=== PATIENT | female | born 1940 | race Caucasian/White ===

== ENCOUNTER 2019-10-19 11:28 | Emergency (ER) | payer OTHER ==
[~2019-10-19] VITALS: Ht 160 cm; Wt 73.5 kg
[2019-10-19] MEDS ORDERED: ASPIR 8181 MG PO (12:07)
[2019-10-19] MEDS ORDERED: EUTHYROX88 MC1 (12:07)
[2019-10-19] MEDS ORDERED: FUROSEMIDE20 MG PO (12:07)
[2019-10-19] MEDS ORDERED: OMEPRAZOLE DR 20 MG (12:08)
[2019-10-19] MEDS ORDERED: Potassium Chlo20 ME1 PO (12:08)
[2019-10-19] MEDS ORDERED: METOPROLOL TART25 MG PO (12:08)
[2019-10-19] MEDS ORDERED: Verapamil HCl360 MG PO (12:08)
[2019-10-19 12:27] LABS: BASOPHILS ABSOLUTE AUTO 0.05 K/mm3 (0.00-0.23); BASOPHILS PERCENT AUTO 1 % (0-2); EOSINOPHILS ABSOLUTE AUTO 0.06 K/mm3 (0.00-0.68); EOSINOPHILS PERCENT AUTO 1 % (0-6); Hematocrit 27.8 % (33.0-51.0); Hemoglobin 9.4 g/dL (11.5-16.0); IMMATURE GRAN ABSOLUTE AUTO 0.09 K/mm3 (0.00-0.10); IMMATURE GRAN PERCENT AUTO 1 % (0-1); LYMPHOCYTES ABSOLUTE AUTO 0.68 K/mm3 (0.84-5.20); LYMPHOCYTES PERCENT AUTO 9 % (21-46); MONOCYTES ABSOLUTE AUTO 0.64 K/mm3 (0.16-1.47); MONOCYTES PERCENT AUTO 8 % (4-13); Mean Corpuscular HGB 32.3 pg (26.0-34.0); Mean Corpuscular HGB Conc 33.8 g/dL (31.5-36.5); Mean Corpuscular Volume 96 fL (80-100); Mean Platelet Volume 9.5 fL (9.1-12.4); NEUTROPHILS ABSOLUTE AUTO 6.39 K/mm3 (1.96-9.15); NEUTROPHILS PERCENT AUTO 81 % (41-73); NRBC ABSOLUTE 0.02 K/mm3 (0.00-0.02); NRBC Auto 0.3 /100 WBC (0.0-0.2); Platelet Count 257 K/mm3 (150-400); RDW Coefficient Variation 16.5 % (11.7-14.2); RDW Standard Deviation 56.2 fL (35.1-46.3); Red Blood Cell Count 2.91 M/mm3 (3.80-5.20); White Blood Cell Count 7.91 K/mm3 (4.00-11.30)
[2019-10-19 12:53] LABS: Alanine Aminotransfer (ALT/SGP 27 U/L (12-78); Albumin, Blood 3.7 g/dL (3.4-5.0); Albumin/Globulin Ratio 1.2 (0.8-1.8); Alk Phos 115 U/L (50-136); Anion Gap 6 mmol/L (6-16); Aspartate Aminotrans (AST/SGOT 31 U/L (12-37); Blood Urea Nitrogen 14 mg/dL (8-24); Bun/Creatinine Ratio 16.8 (12.0-20.0); CO2, Blood 25 mmol/L (21-32); Calcium, Blood 8.9 mg/dL (8.5-10.1); Chloride, Blood 108 mmol/L (98-108); Creatinine, Blood 0.83 mg/dL (0.40-1.00); Glomerular Filtration Rate >60 (60-); Glucose, Blood 112 mg/dL (70-99); Potassium, Blood 3.7 mmol/L (3.5-5.5); Sodium, Blood 139 mmol/L (136-145); Total Protein, Blood 6.7 g/dL (6.4-8.2); Troponin I <0.015 ng/mL (0.000-0.040)
== END 2019-10-19 14:24 | disposition home or self-care (01) ==
LOC: ER 11:28
PROVIDERS: Emergency Medicine
DX: R00.1 Bradycardia, unspecified (principal); R53.1 Weakness; R53.83 Other fatigue; I10 Essential (primary) hypertension; K21.9 Gastro-esophageal reflux disease without esophagitis; E03.9 Hypothyroidism, unspecified; Z79.899 Other long term (current) drug therapy; Z79.82 Long term (current) use of aspirin
CPT/HCPCS: 36415; 71045; 80053; 84484; 85025; 93005; 93010; 99284-25

== ENCOUNTER → 2019-11-23 | Outpatient (CLI) | payer OTHER ==
[~2019-11-23] MED LIST: ASPIR 8181 MG PO; EUTHYROX88 MC1; FUROSEMIDE20 MG PO; METOPROLOL TART25 MG PO; OMEPRAZOLE DR 20 MG; Potassium Chlo20 ME1 PO; Verapamil HCl360 MG PO
== END ==
LOC: LAB 17:55 → LAB SHORT 17:55
DX: L08.9 Local infection of the skin and subcutaneous tissue, unspecified (principal)
CPT/HCPCS: 87070; 87077; 87147; 87186; 87205

== ENCOUNTER 2020-11-05 19:09 | Inpatient (IN) | payer OTHER ==
[~2020-11-05] VITALS: Ht 157.5 cm; Wt 64.9 kg
[~2020-11-05 19:09] MED LIST changes: -ASPIR 8181 MG PO; -EUTHYROX88 MC1; -METOPROLOL TART25 MG PO; -OMEPRAZOLE DR 20 MG; -Verapamil HCl360 MG PO
[2020-11-05] MEDS ORDERED: EUTHYROX88 MC1 PO (22:08)
[2020-11-05] MEDS ORDERED: OMEP20ER PO (22:09)
[2020-11-05] MEDS ORDERED: METO25ER PO (22:09)
[2020-11-05] MEDS ORDERED: ASPIR 8181 MG PO (22:10)
[2020-11-05] MEDS ORDERED: Verapamil HCl360 MG PO (22:11)
[2020-11-05] MEDS ORDERED: VITAMIN D31000 UNI1 PO (22:20)
[2020-11-05 22:22] LABS: Cancer Antigen 19-9 10.6 U/mL (2.0-37.0); Carcinoembryonic Antigen 1.9 ng/mL (0.0-3.0)
[2020-11-06 00:59] LABS: Alanine Aminotransfer (ALT/SGP 14 U/L (12-78); Albumin, Blood 3.1 g/dL (3.4-5.0); Alk Phos 100 U/L (50-136); Anion Gap 7 mmol/L (6-16); Aspartate Aminotrans (AST/SGOT 17 U/L (12-37); Bilirubin, Total 4.4 mg/dL (0.1-1.0); Blood Urea Nitrogen 12 mg/dL (8-24); Bun/Creatinine Ratio 15.7 (12.0-20.0); CO2, Blood 27 mmol/L (21-32); Calcium, Blood 8.4 mg/dL (8.5-10.1); Chloride, Blood 106 mmol/L (98-108); Creatinine, Blood 0.76 mg/dL (0.40-1.00); Globulin, Blood 3.2 g/dL (2.2-4.0); Glomerular Filtration Rate >60 (60-); Glucose, Blood 103 mg/dL (70-99); Potassium, Blood 3.8 mmol/L (3.5-5.5); Sodium, Blood 140 mmol/L (136-145); Total Protein, Blood 6.3 g/dL (6.4-8.2)
[2020-11-06 04:45] LABS: Source, Urine Clean Catch
[2020-11-06 04:51] LABS: Bilirubin, Urine Neg (Neg); Blood, Urine Neg (Neg); Glucose Qualitative, Urine Neg (Neg); Ketones, Urine Neg (Neg); Leukocyte Esterase, Urine Neg (Neg); Nitrite, Urine Neg (Neg); Protein, Urine Neg (Neg); Urobilinogen, Urine NORM (Normal); pH, Urine 6.5 (5.0-8.0)
[2020-11-06 04:52] LABS: Appearance, Urine Clear (Clear); Color, Urine Yellow (P-Yellow)
--- NOTE | 2020-11-06 06:54 | NUR ---
PCU ADMIT / SHIFT SUMMARY PT BROUGHT TO PCU-09 BY JUAN PABLO FROM ER @ APPROX 0020. PT SLID OVER FROM RADRIAN TO U BED D/T LOW HGB LEVEL. PT A&O X4. VSS. MONITOR SHOWING NSR, HR 70's. SPO2 > 92% ON RA UPON ARRIVAL, TITRATED TO 1-2L NC FOR MAINTENANCE OF SPO2 > 92% THIS SHIFT. 1ST UNIT OF pRBC's INITIATED SHORTLY AFTER PT ARRIVAL. PT 2ND UNIT NOW INFUSING, SOON TO BE COMPLETE. PT TOLERATING AMBULATION TO BATHROOM WELL, DENIES LIGHTHEADEDNESS OR DIZZINESS. NO EVENTS OVER NIGHT.
--- NOTE | 2020-11-06 09:34 | NUR ---
ASSUMED CARE, MORNING UPDATE PT WAS IN BED AWAKE DURING MORNING REPORT. PT HAD HER SECOND UNIT OF [facility]'S RUNNING AT THE TIME OF REPORT WHICH WAS FINISHED AT APPROXIMATELY 0735. PT IS [place] AND PLACED HER HEARING AID IN TO PARTICIPATE IN BEDSIDE REPORT. PT STATES "I'M VERY TIRED AND WOULD LIKE A NAP THIS MORNING." VS STABLE; PT DENIES ANY ITCHING; NAUSEA OR FEVER LIKE SYMPTOMS THAT CAN BE RELATED TO BLOOD TRANSFUTION. PT IS ON 2L O2 VIA NC SHE TENDS HAVE SATS DROP BELOW 90% WHEN SLEEPING. PT IS REPORTED BEING SBA AND IS IN BED RESTING AT THIS TIME
[2020-11-06 09:54] LABS: Anion Gap 9 mmol/L (6-16); Blood Urea Nitrogen 11 mg/dL (8-24); Bun/Creatinine Ratio 14.3 (12.0-20.0); CO2, Blood 27 mmol/L (21-32); Calcium, Blood 8.5 mg/dL (8.5-10.1); Chloride, Blood 105 mmol/L (98-108); Creatinine, Blood 0.77 mg/dL (0.40-1.00); Glomerular Filtration Rate >60 (60-); Glucose, Blood 115 mg/dL (70-99); Lactate Dehydrogenase (Ld),Bld 363 U/L (100-240); Sodium, Blood 141 mmol/L (136-145); Troponin I <0.015 ng/mL (0.000-0.040)
[2020-11-06 10:09] LABS: Hematocrit 24.4 % (33.0-51.0); Mean Platelet Volume 9.8 fL (9.1-12.4); NRBC ABSOLUTE 0.04 K/mm3 (0.00-0.02); NRBC Auto 0.9 /100 WBC (0.0-0.2); Platelet Count 204 K/mm3 (150-400); RDW Coefficient Variation 17.2 % (11.7-14.2); RDW Standard Deviation 56.7 fL (35.1-46.3); White Blood Cell Count 4.64 K/mm3 (4.00-11.30)
[2020-11-06 10:15] LABS: Mean Corpuscular Volume 98 fL (80-100)
[2020-11-06 10:17] LABS: Mean Corpuscular HGB Conc 32.8 g/dL (31.5-36.5)
[2020-11-06 10:32] LABS: BAND PERCENT MAN 2 % (0-8); BASOPHILS ABSOLUTE MAN 0.09 K/mm3 (0.00-0.23); BASOPHILS PERCENT MAN 2 % (0-2); EOSINOPHILS ABSOLUTE MAN 0.04 K/mm3 (0.00-0.68); EOSINOPHILS PERCENT MAN 1 % (0-6); LYMPHOCYTES ABSOLUTE MAN 0.51 K/mm3 (0.84-5.20); LYMPHOCYTES PERCENT MAN 11 % (21-46); MONOCYTES ABSOLUTE MAN 0.46 K/mm3 (0.16-1.47); MONOCYTES PERCENT MAN 10 % (4-13); MYELOCYTE ABSOLUTE MAN 0.09 K/mm3 (0.00-0.00); MYELOCYTE PERCENT MAN 2 % (0-0); NEUTROPHILS ABSOLUTE MAN 3.43 K/mm3 (1.96-9.15); SEG NEUTROPHILS PERCENT MAN 72 % (41-73); TOTAL CELLS COUNTED 100
--- NOTE | 2020-11-06 12:30 | NUR ---
ARRIVAL TO SURG FLOOR PT AMBULATES OVER W/ RN AT SIDE; STEADY GAIT. ALERT, ORIENTED, PLEASANT. SLIGHT L FACIAL DROOP NOTICED, CHRONIC. DENIES NEEDS. LUNGS CLEAR.
--- NOTE | 2020-11-06 12:34 | NUR ---
IN HOUSE TRANSFER PT TRANSFERRED TO SURGICAL UNIT RM 226 THERE WAS NO MEDICAL FLOOR ROOM AVAILABLE. PT WAS ABLE TO WALK TO HER NEW ROOM. VS STABLE, PT ON RA AND ALL PERSONAL BELONGINGS WENT WITH THE PT. PT LEFT PCU AT APPROXIMATELY 1225. REPORT GIVEN TO HEIDY PERRY
[2020-11-06 17:24] LABS: Hematocrit 23.7 % (33.0-51.0); Hemoglobin 7.8 g/dL (11.5-16.0); Mean Corpuscular HGB Conc 32.9 g/dL (31.5-36.5); Mean Corpuscular Volume 97 fL (80-100); Mean Platelet Volume 10.2 fL (9.1-12.4); NRBC ABSOLUTE 0.05 K/mm3 (0.00-0.02); NRBC Auto 1.1 /100 WBC (0.0-0.2); Platelet Count 182 K/mm3 (150-400); RDW Coefficient Variation 17.5 % (11.7-14.2); RDW Standard Deviation 58.4 fL (35.1-46.3); Red Blood Cell Count 2.44 M/mm3 (3.80-5.20); White Blood Cell Count 4.59 K/mm3 (4.00-11.30)
--- NOTE | 2020-11-06 18:29 | NUR ---
SUMMARY SINCE ARRIVAL TO UNIT, PLEASANT AND COOPERATIVE. UP IN ROOM IND. EATING, DRINKING, VOIDING. DR KRISHNAN INTO SEE PT. CT COMPLETED THIS EVENING.
[2020-11-06 18:31] LABS: BAND PERCENT MAN 3 % (0-8); BASOPHILS PERCENT MAN 1 % (0-2); EOSINOPHILS PERCENT MAN 0 % (0-6); LYMPHOCYTES PERCENT MAN 11 % (21-46); MONOCYTES PERCENT MAN 11 % (4-13); SEG NEUTROPHILS PERCENT MAN 74 % (41-73); TOTAL CELLS COUNTED 100
--- NOTE | 2020-11-06 20:14 | NUR ---
PT DOING WELL, DENIES ANY NEEDS. DENIES ANY PAIN, SOB, DIZZINESS. VSS, PT STATED READY FOR BED AT THIS TIME. TURNED LIGHTS DOWN, CALL LIGHT IN REACH.
--- NOTE | 2020-11-07 05:18 | NUR ---
PT DID GREAT DURING NIGHT. STATES SLEEP VERY WELL AND IS HOPEFUL TO GO HOME TODAY. LABS PENDING STILL. PT UP INDEPENDENTLY TO BR WITH GOOD STEADY GAIT. CALL LIGHT IS IN REACH. WILL REPORT OFF TO NEXT SHIFT.
[2020-11-07 05:26] LABS: BAND PERCENT MAN 1 % (0-8); BASOPHILS PERCENT MAN 1 % (0-2); EOSINOPHILS PERCENT MAN 1 % (0-6); LYMPHOCYTES PERCENT MAN 19 % (21-46); MONOCYTES PERCENT MAN 9 % (4-13); MYELOCYTE PERCENT MAN 1 % (0-0); SEG NEUTROPHILS PERCENT MAN 68 % (41-73); TOTAL CELLS COUNTED 100
[2020-11-07 05:30] LABS: Anion Gap 8 mmol/L (6-16); Blood Urea Nitrogen 13 mg/dL (8-24); Bun/Creatinine Ratio 16.8 (12.0-20.0); CO2, Blood 28 mmol/L (21-32); Calcium, Blood 8.6 mg/dL (8.5-10.1); Chloride, Blood 105 mmol/L (98-108); Creatinine, Blood 0.77 mg/dL (0.40-1.00); Glomerular Filtration Rate >60 (60-); Glucose, Blood 98 mg/dL (70-99); Potassium, Blood 3.5 mmol/L (3.5-5.5); Sodium, Blood 141 mmol/L (136-145)
[2020-11-07 05:56] LABS: BASOPHILS ABSOLUTE MAN 0.03 K/mm3 (0.00-0.23); EOSINOPHILS ABSOLUTE MAN 0.03 K/mm3 (0.00-0.68); Hematocrit 22.4 % (33.0-51.0); Hemoglobin 7.5 g/dL (11.5-16.0); LYMPHOCYTES ABSOLUTE MAN 0.74 K/mm3 (0.84-5.20); MONOCYTES ABSOLUTE MAN 0.35 K/mm3 (0.16-1.47); MYELOCYTE ABSOLUTE MAN 0.03 K/mm3 (0.00-0.00); Mean Corpuscular HGB 32.8 pg (26.0-34.0); Mean Corpuscular Volume 98 fL (80-100); Mean Platelet Volume 9.8 fL (9.1-12.4); NRBC ABSOLUTE 0.02 K/mm3 (0.00-0.02); NRBC Auto 0.5 /100 WBC (0.0-0.2); Platelet Count 161 K/mm3 (150-400); RDW Coefficient Variation 17.7 % (11.7-14.2); RDW Standard Deviation 59.2 fL (35.1-46.3); Red Blood Cell Count 2.29 M/mm3 (3.80-5.20); White Blood Cell Count 3.92 K/mm3 (4.00-11.30)
[2020-11-07 06:02] LABS: Mean Corpuscular HGB Conc 33.5 g/dL (31.5-36.5)
[2020-11-07 14:25] LABS: Hemoglobin 8.1 g/dL (11.5-16.0); Mean Corpuscular HGB 31.8 pg (26.0-34.0); Mean Corpuscular HGB Conc 32.4 g/dL (31.5-36.5); Mean Corpuscular Volume 98 fL (80-100); Mean Platelet Volume 9.9 fL (9.1-12.4); NRBC ABSOLUTE 0.02 K/mm3 (0.00-0.02); NRBC Auto 0.4 /100 WBC (0.0-0.2); Platelet Count 187 K/mm3 (150-400); RDW Coefficient Variation 17.4 % (11.7-14.2); RDW Standard Deviation 59.2 fL (35.1-46.3); Red Blood Cell Count 2.55 M/mm3 (3.80-5.20); White Blood Cell Count 4.62 K/mm3 (4.00-11.30)
[2020-11-07 14:48] LABS: BASOPHILS PERCENT MAN 0 % (0-2); EOSINOPHILS PERCENT MAN 0 % (0-6); LYMPHOCYTES % ATYPICAL MANUAL 2 % (0-0); LYMPHOCYTES ABSOLUTE MAN 0.36 K/mm3 (0.84-5.20); LYMPHOCYTES PERCENT MAN 6 % (21-46); METAMYELOCYTE ABSOLUTE MAN 0.04 K/mm3 (0.00-0.00); METAMYELOCYTE PERCENT MAN 1 % (0-0); MONOCYTES PERCENT MAN 0 % (4-13); SEG NEUTROPHILS PERCENT MAN 91 % (41-73); TOTAL CELLS COUNTED 100
[2020-11-07] MEDS ORDERED: FOLI1 PO (15:20)
[2020-11-07] MEDS ORDERED: DELTASONE20 MG PO (15:21)
--- NOTE | 2020-11-07 15:46 | NUR ---
DISCHARGE PT EXCITED FOR D/C. SCRIPTS FAXED TO [facility]. DAUGHTER AT BEDSIDE FOR INSTRUCTIONS. DR KRISHNAN OFFICE CALLED AND STATED THEY WOULD F/U WITHIN A WEEK.
[2020-11-08 05:09] LABS: COMPLEMENT C3, SERUM 68 mg/dL (82-167); COMPLEMENT C4, SERUM 2 mg/dL (12-38)
[2020-11-08 19:09] LABS: ANTI-DSDNA ANTIBODIES <1 IU/mL (0-9); RNP ANTIBODIES <0.2 AI (0.0-0.9); SJOGREN'S ANTI-SS-A <0.2 AI (0.0-0.9); SJOGREN'S ANTI-SS-B <0.2 AI (0.0-0.9); SMITH ANTIBODIES <0.2 AI (0.0-0.9)
[2020-11-20 09:34] LABS: SPECIMEN: BLOOD
== END 2020-11-07 15:42 | disposition home or self-care (01) | DRG 812 ==
LOC: ER 19:09 → PCU 22:03 → ERHOLD 22:03 → PCU 11-06 00:18 → SURS 11-06 12:30
PROVIDERS: Internal Medicine Hematology & Oncology; Physician Assistant; Student in an Organized Health Care Education/Training Program; ADMIT Family Medicine
PROC: 30233N1 Transfusion of Nonautologous Red Blood Cells into Peripheral Vein, Percutaneous Approach (ICD-10-PCS; principal; 2020-11-05)
DX: D58.9 Hereditary hemolytic anemia, unspecified (principal); Z79.82 Long term (current) use of aspirin; E53.8 Deficiency of other specified B group vitamins; G51.0 Bell's palsy; R16.1 Splenomegaly, not elsewhere classified; I48.91 Unspecified atrial fibrillation; E03.9 Hypothyroidism, unspecified; I10 Essential (primary) hypertension
CPT/HCPCS: 36415; 36430; 71260; 74177; 80048; 80053; 81003; 82378; 82595; 83010; 83615; 83690; 84484; 85007; 85025; 85027; 86157; 86160; 86225; 86235; 86301; 86850; 86880; 86900; 86901; 86920; 88184; 88185; 88187; 93005; 93010; 99285-25; A9270; J1940; J7030; J7512; P9016; Q9967

== ENCOUNTER 2021-01-02 00:15 | Day surgery (SDC) | payer OTHER ==
[2020-12-31 08:46] LABS: Alanine Aminotransfer (ALT/SGP 14 U/L (12-78); Albumin, Blood 3.3 g/dL (3.4-5.0); Albumin/Globulin Ratio 1.2 (0.8-1.8); Alk Phos 98 U/L (50-136); Anion Gap 5 mmol/L (6-16); Aspartate Aminotrans (AST/SGOT 21 U/L (12-37); Bilirubin, Total 2.9 mg/dL (0.1-1.0); Blood Urea Nitrogen 10 mg/dL (8-24); Bun/Creatinine Ratio 13.5 (12.0-20.0); CO2, Blood 29 mmol/L (21-32); Calcium, Blood 8.6 mg/dL (8.5-10.1); Chloride, Blood 109 mmol/L (98-108); Creatinine, Blood 0.74 mg/dL (0.40-1.00); Globulin, Blood 2.7 g/dL (2.2-4.0); Glomerular Filtration Rate >60 (60-); Glucose, Blood 117 mg/dL (70-99); Potassium, Blood 3.9 mmol/L (3.5-5.5); Sodium, Blood 143 mmol/L (136-145)
[2020-12-31 09:00] LABS: BASOPHILS ABSOLUTE AUTO 0.01 K/mm3 (0.00-0.23); BASOPHILS PERCENT AUTO 0 % (0-2); EOSINOPHILS ABSOLUTE AUTO 0.02 K/mm3 (0.00-0.68); EOSINOPHILS PERCENT AUTO 1 % (0-6); Hematocrit 21.9 % (33.0-51.0); Hemoglobin 7.1 g/dL (11.5-16.0); IMMATURE GRAN ABSOLUTE AUTO 0.03 K/mm3 (0.00-0.10); IMMATURE GRAN PERCENT AUTO 1 % (0-1); LYMPHOCYTES ABSOLUTE AUTO 0.15 K/mm3 (0.84-5.20); LYMPHOCYTES PERCENT AUTO 6 % (21-46); MONOCYTES ABSOLUTE AUTO 0.39 K/mm3 (0.16-1.47); MONOCYTES PERCENT AUTO 15 % (4-13); Mean Corpuscular HGB 32.3 pg (26.0-34.0); Mean Corpuscular HGB Conc 32.4 g/dL (31.5-36.5); Mean Corpuscular Volume 100 fL (80-100); Mean Platelet Volume 9.6 fL (9.1-12.4); NEUTROPHILS ABSOLUTE AUTO 2.02 K/mm3 (1.96-9.15); NEUTROPHILS PERCENT AUTO 77 % (41-73); Platelet Count 176 K/mm3 (150-400); RDW Coefficient Variation 17.5 % (11.7-14.2); RDW Standard Deviation 62.4 fL (35.1-46.3); White Blood Cell Count 2.62 K/mm3 (4.00-11.30)
[~2021-01-02 00:15] MED LIST changes: +ASPIR 8181 MG PO; +DELTASONE20 MG PO; +EUTHYROX88 MC1 PO; +FOLI1 PO; +METO25ER PO; +OMEP20ER PO; +VITAMIN D31000 UNI1 PO; +Verapamil HCl360 MG PO
== END 2021-01-02 17:25 | disposition home or self-care (01) ==
LOC: ATC 00:15 → LAB 00:15 → ATC 14:00
PROVIDERS: Internal Medicine Hematology & Oncology
DX: D59.12 Cold autoimmune hemolytic anemia (principal); C88.4 Extranodal marginal zone B-cell lymphoma of mucosa-associated lymphoid tissue [MALT-lymphoma]; R91.8 Other nonspecific abnormal finding of lung field; R16.1 Splenomegaly, not elsewhere classified; E80.6 Other disorders of bilirubin metabolism; K21.9 Gastro-esophageal reflux disease without esophagitis; I10 Essential (primary) hypertension; I48.91 Unspecified atrial fibrillation; Z87.891 Personal history of nicotine dependence; Z85.858 Personal history of malignant neoplasm of other endocrine glands; Z85.828 Personal history of other malignant neoplasm of skin; Z79.82 Long term (current) use of aspirin; Z79.52 Long term (current) use of systemic steroids; Z79.899 Other long term (current) drug therapy
CPT/HCPCS: 36415; 36430; 80053; 85025; 86850; 86900; 86901; 86923; J7050; P9016

== ENCOUNTER 2021-01-15 12:20 | Day surgery (SDC) | payer OTHER ==
--- NOTE | 2021-01-15 20:35 | NUR ---
DISCHARGE TRANSFUSION COMPLETE. PT TOLERATED WELL AND HAS NO COMPLAINTS. PT DAUGHTER ARRIVED TO PICK PT UP. PT ESCORTED OUT. BELONGINGS IN PLACE.
== END 2021-01-15 20:30 | disposition home or self-care (01) ==
LOC: TRN 12:20 → MEDS 12:26 → TRN 20:30
DX: D59.10 Autoimmune hemolytic anemia, unspecified (principal); C83.09 Small cell B-cell lymphoma, extranodal and solid organ sites
CPT/HCPCS: 36430; 86850; 86900; 86901; 86923; J7050; P9016

== ENCOUNTER 2021-11-20 00:17 | Day surgery (SDC) | payer OTHER | END 2021-11-20 12:35 | disposition home or self-care (01) | LOC: ATC 00:17 | DX: C83.09 Small cell B-cell lymphoma, extranodal and solid organ sites (principal); Z87.891 Personal history of nicotine dependence | CPT/HCPCS: 86850; 86900; 86901; 86923; J7050; P9016 ==

== ENCOUNTER 2021-12-30 21:33 | Inpatient (IN) | payer OTHER ==
[~2021-12-30] VITALS: Ht 160 cm; Wt 56.5 kg
[2021-12-30] MEDS ORDERED: CEFDINIR300 M4 PO (22:24)
[2021-12-30] MEDS ORDERED: FUROSEMIDE20 MG PO (22:25)
[2021-12-30] MEDS ORDERED: POTCHL20ER PO (22:25)
[2021-12-30] MEDS ORDERED: Ventolin/Prove6.7 GM INH (22:28)
[2021-12-30 22:30] LABS: BASOPHILS PERCENT AUTO 0 % (0-2); EOSINOPHILS ABSOLUTE AUTO 0.01 K/mm3 (0.00-0.68); EOSINOPHILS PERCENT AUTO 0 % (0-6); Hemoglobin 8.1 g/dL (11.5-16.0); Mean Corpuscular HGB 27.7 pg (26.0-34.0); Mean Corpuscular HGB Conc 32.4 g/dL (31.5-36.5); Mean Corpuscular Volume 86 fL (80-100); Mean Platelet Volume 12.2 fL (9.1-12.4); NRBC ABSOLUTE 0.02 K/mm3 (0.00-0.02); NRBC Auto 0.4 /100 WBC (0.0-0.2); Platelet Count 54 K/mm3 (150-400); RDW Coefficient Variation 17.6 % (11.7-14.2); RDW Standard Deviation 55.4 fL (35.1-46.3); Red Blood Cell Count 2.92 M/mm3 (3.80-5.20); White Blood Cell Count 4.75 K/mm3 (4.00-11.30)
[2021-12-30 22:30] LABS: Calcium, Ionized (POC) 1.05 mmol/L (1.10-1.46); Chloride (POC) 86 mmol/L (98-108); Creatinine (POC) 0.8 mg/dL (0.6-1.0); Glucose (ISTAT POC) 173 mg/dL (70-99); Hemoglobin (POC) 8.5 g/dL (12.0-16.0); Sodium (POC) 120 mmol/L (135-148); Total CO2 (POC) 23 mmol/L (21-32)
[2021-12-30 22:46] LABS: Alanine Aminotransfer (ALT/SGP 19 U/L (12-78); Albumin, Blood 2.1 g/dL (3.4-5.0); Albumin/Globulin Ratio 0.7 (0.8-1.8); Alk Phos 221 U/L (50-136); Anion Gap 12 mmol/L (6-16); Aspartate Aminotrans (AST/SGOT 37 U/L (12-37); Blood Urea Nitrogen 15 mg/dL (8-24); Bun/Creatinine Ratio 25.7 (12.0-20.0); CO2, Blood 24 mmol/L (21-32); Calcium, Blood 7.8 mg/dL (8.5-10.1); Chloride, Blood 89 mmol/L (98-108); Creatinine, Blood 0.58 mg/dL (0.40-1.00); Glomerular Filtration Rate >60 (60-); Glucose, Blood 167 mg/dL (70-99); Potassium, Blood 3.9 mmol/L (3.5-5.5); Sodium, Blood 125 mmol/L (136-145); Total Protein, Blood 5.1 g/dL (6.4-8.2)
[2021-12-30 22:48] LABS: IMMATURE GRAN ABSOLUTE AUTO 0.09 K/mm3 (0.00-0.10); IMMATURE GRAN PERCENT AUTO 2 % (0-1); LYMPHOCYTES ABSOLUTE AUTO 0.15 K/mm3 (0.84-5.20); LYMPHOCYTES PERCENT AUTO 3 % (21-46); MONOCYTES ABSOLUTE AUTO 0.09 K/mm3 (0.16-1.47); MONOCYTES PERCENT AUTO 2 % (4-13); NEUTROPHILS ABSOLUTE AUTO 4.41 K/mm3 (1.96-9.15); NEUTROPHILS PERCENT AUTO 93 % (41-73)
[2021-12-31 01:33] LABS: Influenza A, PCR NEGATIVE (NEGATIVE); Influenza B, PCR NEGATIVE (NEGATIVE); Resp Syncytial Virus, PCR NEGATIVE (NEGATIVE); SARS-Cov-2 (COVID-19) PCR, MMC NEGATIVE (NEGATIVE)
[2021-12-31 03:21] LABS: International Normalized Ratio 1.38; Prothrombin Time Results 14.2 Sec (9.7-11.5)
--- NOTE | 2021-12-31 07:25 | NUR ---
0430: Pt arrived to ICU room 2 via gurney from ER. Slide transferred to bed with 4 staff assist. Per AIR ANTISUBMARINE OFFICER, unable to complete CT scan as contrast was not visible on injection, unable to aspirate blood from US placed IV to right upper arm, unable to verify adequate flush without infiltration. Will place call to Dr Campuzano regarding need for IV access. Pt HR noted 150-180s, pressures improved per AIR ANTISUBMARINE OFFICER. Edema noted to upper and lower extremities, 2-3+ pitting. 0445: call placed to Dr Campuzano regarding need for IV access. States that he will be here in 10-15 minutes and to have set up available at room. 0500: Dr Campuzano arrives at bedside. Plan for central line insertion. 0550: Central line insertion complete. Instructed to obtain manual BP. Pt states to "stop it" and "leave me alone" also states "there's a whole hospital for that" "you're not a doctor or a nurse" and calls this RN "Cici" 0555: manual BP obtained 138/72, continues in afib with rates to the 180s, CXR for line placement is complete, awaiting confirmation of placement from MD prior to return to CT for ordered study. 0610: pt to radiology for CT angio. continues to tell staff "leave me alone" 0630: pt back to room 0640: call placed to Dr Grhaam to notify that CT angio is complete, afib with rates to 180-190s continues, pressures maintaining as of this time, Dr Campuzano arrives to bedside. States that he will review imaging study in ER. Verbal order for IV lopressor obtained. 0650: spoke with Dr Campuzano regarding CT angio results, orders received. verified per pharmacy request that IV labetolol cannot be subsituted for IV lopressor. 0655: Lopressor IV admin over 10 minutes with blood pressure assessments every 3 minutes. rates improved to 150s, bedside report given
[2021-12-31 07:55] LABS: Source, Urine Straight Cath
[2021-12-31 07:59] LABS: Appearance, Urine Clear (Clear); Bilirubin, Urine Neg (Neg); Blood, Urine 1+ (Neg); Color, Urine Yellow (P-Yellow); Glucose Qualitative, Urine Neg (Neg); Ketones, Urine Neg (Neg); Leukocyte Esterase, Urine 1+ (Neg); Nitrite, Urine Neg (Neg); Protein, Urine 1+ (Neg); Specific Gravity, Urine 1.015 (1.003-1.022); Urobilinogen, Urine 1+ (Normal)
[2021-12-31 08:10] LABS: Bacteria Mod /hpf; Red Blood Cells, Urine 0-2 /hpf (0-2); Squamous Epithelial Cells Rare /hpf (Few)
--- NOTE | 2021-12-31 08:44 | NUR ---
0800 assume care Patient in room in bed alert but oriented to self/ her date of only. She received lopressor iv by previous nurse at 0720. BP dropped with the dose but did slowly recover back to 120/60's. Her SaO2 probe is not picking up well due to her cool extremeties and on the ear it still was not reading well. Intermittently it shows 93% she is on 2L NC with course crackles T/O with expiratory wheezes upper right lobe. She has a soft abd with hypo bowel tones. Her daughter went home just before change of shift. Her heart rate is still 150's AFIB. Cardoso placed and lasix and digoxin given iv. She has central line right IJ working well, will need a dressing change due to blood at dressing site. Dr Pinon notified of results giving another dose of digoxin iv and will continue care as directed.
[2021-12-31 11:13] LABS: BASOPHILS PERCENT AUTO 0 % (0-2); EOSINOPHILS ABSOLUTE AUTO 0.01 K/mm3 (0.00-0.68); EOSINOPHILS PERCENT AUTO 0 % (0-6); Hematocrit 20.8 % (33.0-51.0); IMMATURE GRAN ABSOLUTE AUTO 0.03 K/mm3 (0.00-0.10); IMMATURE GRAN PERCENT AUTO 1 % (0-1); LYMPHOCYTES ABSOLUTE AUTO 0.03 K/mm3 (0.84-5.20); LYMPHOCYTES PERCENT AUTO 1 % (21-46); MONOCYTES ABSOLUTE AUTO 0.07 K/mm3 (0.16-1.47); MONOCYTES PERCENT AUTO 3 % (4-13); Mean Corpuscular HGB 28.8 pg (26.0-34.0); Mean Corpuscular HGB Conc 33.7 g/dL (31.5-36.5); Mean Corpuscular Volume 86 fL (80-100); Mean Platelet Volume 11.3 fL (9.1-12.4); NEUTROPHILS ABSOLUTE AUTO 2.12 K/mm3 (1.96-9.15); NEUTROPHILS PERCENT AUTO 94 % (41-73); RDW Coefficient Variation 16.5 % (11.7-14.2); Red Blood Cell Count 2.43 M/mm3 (3.80-5.20); White Blood Cell Count 2.26 K/mm3 (4.00-11.30)
[2021-12-31 11:20] LABS: Alanine Aminotransfer (ALT/SGP 15 U/L (12-78); Albumin/Globulin Ratio 0.8 (0.8-1.8); Alk Phos 158 U/L (50-136); Anion Gap 11 mmol/L (6-16); Aspartate Aminotrans (AST/SGOT 28 U/L (12-37); Bilirubin, Total 2.6 mg/dL (0.1-1.0); Blood Urea Nitrogen 15 mg/dL (8-24); Bun/Creatinine Ratio 25.4 (12.0-20.0); CO2, Blood 26 mmol/L (21-32); Chloride, Blood 90 mmol/L (98-108); Creatinine, Blood 0.59 mg/dL (0.40-1.00); Globulin, Blood 2.4 g/dL (2.2-4.0); Glomerular Filtration Rate >60 (60-); Glucose, Blood 128 mg/dL (70-99); Sodium, Blood 127 mmol/L (136-145); Total Protein, Blood 4.4 g/dL (6.4-8.2)
[2021-12-31 11:21] LABS: Platelet Count 36 K/mm3 (150-400)
--- NOTE | 2021-12-31 11:31 | NUR ---
Case conference note: Spoke with ICU charge and bedside RN re: current status and concerns, goals of care. Pt was admitted early this am with hypoxia, afib-RVR, increased weakness after most recent chemo tx for lymphoma. Pt sees Dr Estrada for tx of lymphoma and chronic anemia. I notified his office that pt has been admitted to ICU 2. Pt has been confused and yelling out, "NO!" repeatedly, with any attempts to provide care per staff. She was asleep when I came by to visit and her RN was on phone updating her jacquie. Jacquie will be in to visit later and would like an update from her mom's Dr. I notified Dr Pinon and planned to meet with her and jacquie at 1230 in ICU for an update and to address goals of care and her code status. Staff feel pt's rejection of care may be an indicator that she does not want agressive intervention at this time. She appears very frail, elderly at 81, lying in bed. A-fib is a new dx for pt per daughter, Padmini.
--- NOTE | 2021-12-31 12:29 | NUR ---
1230 NOON PATIENT RESTING COMFORTABLY IN THE BED. LESS COMABATIVE NOW. HER PULSE IS DOWN TO 120 HER RR ARE 24, HER BP IS STABLE, SPO2 IS 93% ON INTERMITTENT CHECK DUE TO COOL FINGERS AND DIFFICULT TO GET A GOOD SATURATION WAVE FORM. PATIENT IS NOW ON 5L NC FROM 2L NC THIS AM. SHE HAS RECEIVED MG, CALCIUM CHLORIDE AND NOW POTASSIUM REPLACEMENT. ANTIBIOTICS STILL ACTIVE. HER TEMPERATURE HAS COME DOWN TO 100.5 WITH TYLENOL. SPOKE WITH DAUGHTER KRISTIN ON THE PHONE WE SAID SHE WAS COMING IN AT 1130 BUT STILL HAS NOT ARRIVED. pALLITIVE CARE STOPPED BY BUT AWAITING DAUGHTER TO ARRIVE. WILL CONTINUE CARE FOR PATIENT DIRECTED.
--- NOTE | 2021-12-31 15:57 | NUR ---
Initial [facility] Care visit - Joint visit made with to the bedside to meet with pt's daughter Padmini - [phone]. Pt appears flushed, uncomortable and was not responsive to the voices in the room or her daughter pressing her forehead repeatedly. She remains febrile and with evidence of fluid in her lungs by lung sounds and CXR. Pt has been given rx to control rate/rhythm of HR and lasix for gentle diuresis. Rectal tylenol given with some reduction in fever but at the time of our visit, temperature and HR were rising again. Daughter was very animated and speaking in rapid non-stop verbalizations of all that she does to reduce pt's fevers at home. Attempted to discuss goals of care due to pt's severe acute illness, 15 months w/lymphoma & chemo, jacquie's description of general decline in recent weeks/months. Jacquie is very fixated on pt's anemia and fever. She verbalized facing pressure and critisism from other family members who states she should have gotten a second opinion out of area when pt was initially diagnosed with lymphoma. Jacquie expressed having to "force" her mother to take medications and comply with tx and that sometimes she had to agitate her to the point that pt complied. outlined the current plan and goals and also risks with tx that pt may experience, like low BP. Jacquie was not able to listen or understand. She described "making the Dr order steroids" for her mom's low WBC count due to chemotherapy. I tried to discuss pt's increased risk of infection with immunosuppression/compromise with lymphoma, chemo, steriods. Jacquie appears to have a very low medical understanding but belongs to an online support group for lymphoma and gets information/input there that she believes applies to all lymphoma patients. Attempted to discuss pt's quality of life, what her mother would want in regard to code status if she were not recovering from current illness or declined further. Jacquie stated that she believes unless her mom was "brain " that she thought she'd want us to do everything. Discussed large span of poor quality of life between suffering with severe chronic illness and "brain ". Raised the issue of medical battery in attempting to treat pt, who has made it clear she does not want any body providing care in her confusion. Plan to readress goals of care with pt if her mentation clears. Jacquie again talked about forcing care on her mom at home in different situations and described her mom as a stubborn "shit head" in her old age. Dr attempted to answer daughter's questions but jacquie interupted and talked over any information provided by us. Full verbal report on our visit given to ICU Keypunch Operator, [facility] Care team for f/u, ICU bellows charger assembler and pt's bedside RN, who was present for some of our visit.
--- NOTE | 2021-12-31 17:36 | NUR ---
1730 END OF SHIFT NOTE PATIENT HAS BEEN TRYING TO REST IN THE BED WHEN NOT STIMULATED BY HER DAUGHTER WHO IS PUTTING COOL CLOTHS ON HER HEAD AND CHEST DUE TO HER FEVER. SHE HAS PUT OUT 3L OF URINE TODAY THUS FAR. HER BP AT TIMES IS LOW BUT IS HOLDING AT 105/40'S MOST OF THE TIME. HER RR ARE 24-26 AND SHE HAS COURSE CRACKLES T/O WITH EXPIRATORY WHEEZES. SHE IS COUGHING PERIODICALLY BUT NOTHING IS COMING UP. DAUGHTER IS TALKING A LOT ABOUT THE KIND OF CARE SHE IS RECEIVING AT HOME. HER DAUGHTER KRISTIN STATES THAT SHE KEEPS HER UP IN THE RECLINER MOST NIGHTS INSTEAD OF LETTING HER GO TO BED BECAUSE OTHERWISE SHE WOULD GET FEVERS AT HOME. SHE STATED THAT THE PATIENTS CHEST STARTED HURTING ON THURSDAY AND SHE STARTED HER CHEMO ON THURSDAY, SHE NOTICED HER MOM WASNT DOING WELL THURSDAY AND BROUGHT HER URINE IN THE DR'S LAB TO TEST IT TO SEE IF SHE HAD AN INFECTION THEN. IT WAS POSITIVE THEN AND SHE WAS STARTED ON AN ANTIBIOTIC BUT SHE ONLY GOT ONE PILL FOR IT BEFORE HER DAUGHTER ARABELLA HER IN TO THIS EMERGENCY ROOM BECAUSE SHE WASN'T BREATHING WELL. HER DAUGHTER SPEAKS AGGRESSIVELY TO HER MOTHER/ THE PATIENT LIKE " YOU BETTER" "I AM MEAN TO HER SOMETIMES, BUT ITS BECUASE I LOVE HER AND WANT HER TO GET BETTER", "I MAKE HER"..., PATIENT DOES INTERACT WITH HER DAUGHTER A BIT BUT STILL DOESN'T WANT STUFF DONE TO HER/CARE VALDOVINOS, LIKE TURNING OR GETTING WIPED DOWN WITH A COOL CLOTH. SHE IS STILL HAVING A HIGH HEART RATE A FIB 120-140'S. WILL CONTINUE CARE DIRECTED.
--- NOTE | 2021-12-31 19:51 | NUR ---
ASSUMED CARE REPORT RECEIVED. PT IS RESTING QUIETLY RECLINING IN BED, DENIES N/V, DENIES PAIN, DENIES CP/PRESSURE, DENIES BACK PAIN, STATES THAT BREATHING FEELS GOOD AT THIS TIME, SHE IS NOTED TO BE SPEAKING IN FULL SENTENCES WITHOUT VISIBLE INCREASED WORK OF BREATHING AT REST, LUNG SOUNDS ARE NOTED IMPROVED AT THIS TIME. AFIB CONTINUES, RATE IMPROVED TO 110S AT REST, PRESSURES ARE SOFT BUT MAINTAINING MAP, EDEMA IMPROVED TO 3+ PITTING IN LOWER EXTREMITIES BILAT. ACTIVE BOWEL TONES, ABD SOFT, NO GRIMACING OR REPORT OF PAIN WITH PALPATION. PT IS AGREEABLE TO TURNS EVERY 2 HOURS THIS SHIFT TO PREVENT PRESSURE INJURY. DISCUSSED PLAN OF CARE FOR MEDICATIONS, ORAL AND CATH CARE THIS SHIFT WELL PLANS TO MAXIMIZE SLEEP. PT IS AGREEABLE AT THIS TIME. NS AT TKO X 2 TO CENTRAL LINE, DRESSING IS CDI AND SITE WNL.
--- NOTE | 2022-01-01 01:09 | NUR ---
UPDATE PT BOOSTED IN BED FOLLOWING WHICH SHE STATES "I FEEL LIKE I'M GOING TO THROW UP" ASSITED BACK TO RIGHT SIDE LYING AND EMESIS BAG PROVIDED, ZOFRAN OBTAINED FROM [place] AND ADMINISTERED IV, AT THE TIME OF ADMINISTRATION PT DENIES NAUSEA AND STATES THAT SHE FELT NAUSEOUS "YESTERDAY" AND DENIES NAUSEA TODAY. SPOT CHECK OF SPO2 AT THIS TIME IS 86-88%, OXYGEN INCREASED FROM 3 L/MIN NC TO 4 L/MIN NC SATS ARE CURRENTLY 94% WILL MONITOR
[2022-01-01 02:13] LABS: BASOPHILS PERCENT AUTO 0 % (0-2); EOSINOPHILS ABSOLUTE AUTO 0.02 K/mm3 (0.00-0.68); EOSINOPHILS PERCENT AUTO 1 % (0-6); Hemoglobin 6.2 g/dL (11.5-16.0); IMMATURE GRAN ABSOLUTE AUTO 0.05 K/mm3 (0.00-0.10); IMMATURE GRAN PERCENT AUTO 3 % (0-1); LYMPHOCYTES ABSOLUTE AUTO 0.04 K/mm3 (0.84-5.20); LYMPHOCYTES PERCENT AUTO 2 % (21-46); MONOCYTES ABSOLUTE AUTO 0.08 K/mm3 (0.16-1.47); MONOCYTES PERCENT AUTO 4 % (4-13); Mean Corpuscular HGB 28.3 pg (26.0-34.0); Mean Corpuscular HGB Conc 32.6 g/dL (31.5-36.5); Mean Corpuscular Volume 87 fL (80-100); Mean Platelet Volume 11.3 fL (9.1-12.4); NEUTROPHILS ABSOLUTE AUTO 1.85 K/mm3 (1.96-9.15); NEUTROPHILS PERCENT AUTO 91 % (41-73); RDW Coefficient Variation 16.7 % (11.7-14.2); RDW Standard Deviation 52.7 fL (35.1-46.3); Red Blood Cell Count 2.19 M/mm3 (3.80-5.20); White Blood Cell Count 2.04 K/mm3 (4.00-11.30)
[2022-01-01 02:21] LABS: Platelet Count 34 K/mm3 (150-400)
[2022-01-01 02:29] LABS: Alanine Aminotransfer (ALT/SGP 11 U/L (12-78); Albumin, Blood 1.7 g/dL (3.4-5.0); Albumin/Globulin Ratio 0.8 (0.8-1.8); Alk Phos 154 U/L (50-136); Anion Gap 7 mmol/L (6-16); Aspartate Aminotrans (AST/SGOT 27 U/L (12-37); Bilirubin, Total 1.6 mg/dL (0.1-1.0); Blood Urea Nitrogen 15 mg/dL (8-24); CO2, Blood 29 mmol/L (21-32); Calcium, Blood 7.2 mg/dL (8.5-10.1); Chloride, Blood 93 mmol/L (98-108); Globulin, Blood 2.2 g/dL (2.2-4.0); Glomerular Filtration Rate >60 (60-); Glucose, Blood 90 mg/dL (70-99); Magnesium, Blood 1.6 mg/dL (1.6-2.4); Potassium, Blood 3.5 mmol/L (3.5-5.5); Sodium, Blood 129 mmol/L (136-145); Total Protein, Blood 3.9 g/dL (6.4-8.2)
--- NOTE | 2022-01-01 05:52 | NUR ---
PT HAS BEEN PLEASANT AND COOPERATIVE WITH CARE THROUGHOUT NOC HOWEVER AT 0530 THIS AM SHE AWAKENS AND REMOVES NASAL CANNULA, STATES THAT "THIS THING'S DRIVING ME CRAZY" SHE TELLS THIS RN THAT "I'M NOT SICK, YOU'RE LYING TO ME" AND "I HATE MY DAUGHTER FOR DOING THIS TO ME" "YOU CAN'T KEEP ME HERE, I CAN LEAVE WHENEVER I WANT TO" HOWEVER SHE IS UNABLE TO STATE WHERE SHE IS AT THIS TIME, ON FURTHER DISCUSSION, SHE REORIENTS TO THE FACT THAT SHE IS IN THE HOSPITAL HOWEVER STATES THAT SHE DOES NOT KNOW WHERE [facility] IS. DISCUSSED WITH PT THAT OXYGEN SATURATION ON ROOM AIR IS MARKEDLY LOW AND SHE AGAIN STATES THAT "YOU'RE LYING TO ME, I CAN BREATHE, I FEEL FINE" SHE DOES REDIRECT WITH SOME DIFFICULTY AND ALLOWS NASAL CANNULA TO BE REPLACED. EXPLAINED TO PT THAT SHE IS RECEIVING A TRANSFUSION OF PACKED RED CELLS AT THIS TIME WELL IV ANTIBIOTICS SHE AGAIN STATES THAT SHE IS NOT SICK. RESPIRATORY RATE HAS IMPROVED THROUGHOUT NOC TO LOW 20S OF THIS TIME, LUNGS CONTINUE COARSE WITH INTERMITTENT EXPIRATORY WHEEZES NOTED, OXYGEN REQUIREMENTS HAVE BEEN BETWEEN 3 AND 5 L/MIN, CONTINUOUS SPO2 MONITORING CONTINUES TO PRESENT DIFFICULTY DUE TO POOR CIRCULATION TO FINGERS AND TOES, WITH GOOD SIGNAL STRENGTH PT'S SATURATION HAS BEEN UPPER 90S. HEART RATE HAS IMPROVED THROUGHOUT NOC TO 90-110S OF THIS TIME, SHE DOES CONTINUE TO INCREASE TO THE 120S WITH REPOSITIONING HOWEVER QUICKLY RETURNS TO BASELINE WHEN RETURNS TO REST, EDEMA CONTINUES WITHOUT CHANGES THROUGHOUT NOC, PRESSURES NOTED TO BE IMPROVING WITH TRANSFUSION. TEMP PROBE VALDES REMAINS IN PLACE, 500 ML DARK YELLOW URINE OUTPUT THIS SHIFT, TYLENOL ADMIN X 1 FOR FEVER, PT IS NOW 99.2. INCONT OF SMALL BM X 2, DARK BROWN IN COLOR, PELLET CONSISTENCY.
[2022-01-01 07:45] LABS: Hematocrit 23.2 % (33.0-51.0); Hemoglobin 7.7 g/dL (11.5-16.0)
--- NOTE | 2022-01-01 08:10 | NUR ---
ASSUMPTION OF CARE RECEIVED REPORT FROM DHARMESH MOODY AT 0705, ASSUMED CARE OF PATIENT. PATIENT LAYING ON RIGHT SIDE, EYES CLOSED AND EASILY AWAKENS. VITALS STABLE WITH HEART RHYTHM AFIB, RATE CONTROLLED AT THIS TIME. BLOOD PRESSURE STABLE. 02 SATS ABOVE 90% ON 2L 02 VIA NC. CENTRAL LINE TO RIJ WITH POTASSIUM REPLACEMENT INFUSING. VALDES CATHETER PATENT AND DRAINING. WILL REVIEW ORDERS AND TREAT PRESCRIBED.
[2022-01-01 08:13] LABS: Digoxin (Lanoxin) 1.32 ug/mL (0.80-2.00)
--- NOTE | 2022-01-01 12:07 | NUR ---
REASSESSMENT 02 CHANGED FROM NASAL CANNULA TO OXYMIZER AT 3L. SATS 90-91%. PATIENT REMAINS LETHARGIC BUT RESPONDS TO VERBAL STIMULI. DR. KRISHNAN ROUNDED AND EXPLAINED WE MIGHT SEE CARDIAC STABILIZATION IN 1-[address] DAYS. DIGOXIN GIV[address] DR. RIBEIRO. WILL CONTINUE TO MONITOR.
--- NOTE | 2022-01-01 13:56 | NUR ---
CT SCAN PATIENT TRANSPORTED TO CT VIA BED WITH 2 STAFF MEMBER ASSIST. PATIENT REMAINED STABLE AND TOLERATED CT WELL. DAUGHTER TO BEDSIDE, EDUCATED REGARDING CT SCAN PURPOSE PER ORDERING PHYSICIAL DR. KRISHNAN. DAUGHTER VERBALIZED UNDERSTANDING.
--- NOTE | 2022-01-01 14:51 | NUR ---
ESMOLOL REVIEWED NEW ORDER FOR ESMOLOL WITH DR. RIBEIRO. WILL KEEP ON EMAR BUT WONT START UNLESS HEART RATE SUSTAINS WITHIN PARAMETERS ABOVE 120.
--- NOTE | 2022-01-01 15:59 | NUR ---
CASE CONFERENCE: Met with pt's daughter Patti at bedside this afternoon. She does appear to understand and care about her mom's current health issues. We had an in depth discussion regarding pt's history with lymphoma including complications. Patti quit her CG job to care solely for the patient, and states it is working out well. She states she does get "some grief" from other family members when anything goes "wrong", but for the most part, the family has been supportive of the pt's choices. We discussed POLST and AD, which Patti says she will bring in AD tomorrow, and fill out POLST along with pt wishes. She does state pt has mild dementia, but is able to make many of her wants and needs known. Plan to review AD with her tomorrow and take a copy for the record. Expecting Patti to likely change Code to DNR tomorrow due to our conversation today.
--- NOTE | 2022-01-01 17:15 | NUR ---
SHIFT SUMMARY PATIENT LETHARGIC THROUGH SHIFT. WOULD EASILY AWAKEN BUT UNLESS CONTINUOUSLY STIMULATED WOULD CONTINUE TO REST. INITIALLY CONFUSED. THROUGH AFTERNOON, PATIENT MORE A/O WITH DAUGHTER PRESENT. PALLIATIVE CARE ROUNDED AND DISCUSSED GOALS OF CARE WITH DAUGHTER. DISCUSSED NPO STATUS AND ORDERS FOR A ST EVAL OBTAINED THAT WILL TAKE PLACE TOMORROW. HEART RHYTHM AFIB WITH RATE 110-120. B/P TOLERATED LASIX WITHOUT REQUIRING LEVOPHED. DISCUSSED ESMOLOL THAT WAS ORDERED BY DR. RIBEIRO, WILL NOT START MEDICATION UNLESS HEART RATE SUSTAINS ABOVE 120. 02 SWITCHED FROM NC TO OXYMIZER PER PATIENT BREATHING THROUGH MOUTH WHILE ASLEEP, SP02 SPOT CHECKED DUE TO DIFFICULTY OBTAINING SP02 PERIPHERALLY DUE TO PERFUSION. SP02 ABOVE 90% ON 5L 02. CT OF ABD OBTAINED PER DR. KRISHNAN. VALDES REMAINED PATENT AND DRAINING WITH INCREASED OUTPUT. SCD'S PLACED TO BLE IN PLACE OF LOVENOX. ANTIBIOTICS CHANGED PER DR. RIBEIRO AND ADMINISTERED ORDERED. WILL CONTINUE TO MONITOR AND REPORT TO ONCOMING RN.
--- NOTE | 2022-01-01 20:25 | NUR ---
ASSUMED CARE PATIENT AROUSES TO VOICE, AXO TO SELF/PLACE, FOLLOWING COMMANDS, CALM AND COOPERATIVE. C/O PAIN TO BOTTOM-TURNED, LINEN CHANGED, AND TUCKED WITH PILLOW TO OFFLOAD. 3 L OXIMIZER, DENIES SOB AT THIS TIME. AFIB 100S-1TEENS. MAP>65. VALDES PATENT AND DRAINING CLEAR CHRIS URINE. PATIENT NOW RESTING. WILL CONTINUE TO MONITOR.
[2022-01-02 03:48] LABS: Hematocrit 23.2 % (33.0-51.0); Hemoglobin 7.6 g/dL (11.5-16.0); Mean Corpuscular HGB 28.6 pg (26.0-34.0); Mean Corpuscular HGB Conc 32.8 g/dL (31.5-36.5); Mean Corpuscular Volume 87 fL (80-100); RDW Coefficient Variation 16.6 % (11.7-14.2); RDW Standard Deviation 52.9 fL (35.1-46.3); Red Blood Cell Count 2.66 M/mm3 (3.80-5.20); White Blood Cell Count 2.52 K/mm3 (4.00-11.30)
[2022-01-02 03:51] LABS: Platelet Count 34 K/mm3 (150-400)
[2022-01-02 04:13] LABS: BAND PERCENT MAN 12 % (0-8); BASOPHILS PERCENT MAN 0 % (0-2); EOSINOPHILS ABSOLUTE MAN 0.05 K/mm3 (0.00-0.68); EOSINOPHILS PERCENT MAN 2 % (0-6); LYMPHOCYTES ABSOLUTE MAN 0.02 K/mm3 (0.84-5.20); LYMPHOCYTES PERCENT MAN 1 % (21-46); MONOCYTES ABSOLUTE MAN 0.05 K/mm3 (0.16-1.47); MONOCYTES PERCENT MAN 2 % (4-13); NEUTROPHILS ABSOLUTE MAN 2.39 K/mm3 (1.96-9.15); SEG NEUTROPHILS PERCENT MAN 83 % (41-73); TOTAL CELLS COUNTED 100
[2022-01-02 04:19] LABS: Albumin, Blood 1.6 g/dL (3.4-5.0); Anion Gap 6 mmol/L (6-16); Blood Urea Nitrogen 16 mg/dL (8-24); Bun/Creatinine Ratio 27.8 (12.0-20.0); CO2, Blood 31 mmol/L (21-32); Calcium, Blood 7.2 mg/dL (8.5-10.1); Chloride, Blood 95 mmol/L (98-108); Creatinine, Blood 0.58 mg/dL (0.40-1.00); Digoxin (Lanoxin) 1.11 ug/mL (0.80-2.00); Glomerular Filtration Rate >60 (60-); Glucose, Blood 72 mg/dL (70-99); Magnesium, Blood 1.9 mg/dL (1.6-2.4); Phosphorus, Blood 3.4 mg/dL (2.5-4.9); Potassium, Blood 3.8 mmol/L (3.5-5.5); Sodium, Blood 132 mmol/L (136-145)
--- NOTE | 2022-01-02 06:12 | NUR ---
SHIFT SUMMARY PATIENT DROWSY BUT AWAKENS TO VOICE, AXO TO SELF AND PLACE. CALM/COOPERATIVE AND FOLLOWING COMMANDS. 3-4 L OXYMIZER, CRACKLES/COURSE LUNG SOUNDS. AFIB 90-120S, OCCASIONALLY IN 130S-140S BUT NEVER SUSTAINED WITH HEMODYNAMIC COMPROMISE. SBP 90-1TEENS. 3-4+ PITTING EDEMA IN LOWER EXTREMITIES. REMAINS NPO UNTIL SPEECH EVAL. NO BM. PATENT VALDES 30-60 ML/HR. PATIENT SEEMS TO BE RESTING COMFORTABLY AT THIS TIME.
--- NOTE | 2022-01-02 07:32 | NUR ---
ASSUMPTION OF CARE RECEIVED REPORT FROM TENZIN MOODY, ASSUMED CARE OF PATIENT. PATIENT IN BED WITH EYES CLOSED, EASILY AWAKENS. ORIENTED TO SELF AND PLACE. ASKED IF SHE COULD GO HOME YET. 3L [address] WITH SATS ABOVE 90%. LUNGS COARSE AND CRACKLES THROUGHOUT. AFIB WITH RATE 110-120, STABLE B/P. 4+ PITTING EDEMA TO BLE, ELEVATED ON PILLOWS. VALDES CATHETER PATENT AND DRAINING CLEAR, YELLOW URINE. SPEECH THERAPY TO ROOM AT THIS TIME TO EVALUATE FOR DIET CHANGE. WILL REVIEW ORDERS AND TREAT PRESCRIBED.
--- NOTE | 2022-01-02 12:04 | NUR ---
Spiritual Care Visit. Pt. is awake in bed and eating lunch. Pt. welcomes my visit. Pt. displays evidence of mild confusion. Re-introduce myself with the help of a nurse present to clarify pts. memory and orientation. Pt. verbalized wanting to go home, and specifically if this ore crusher could take her home...twice. This ore crusher offered to return at a later time. Pt. displayed evidence of wanting prayer. Prayed for Pt. Pt. verbalized gratitude for the spiritual care visit.
--- NOTE | 2022-01-02 17:26 | NUR ---
SHIFT SUMMARY PATIENT MORE ALERT AND ORIENTED THROUGH SHIFT. INTERACTING WITH CARE, ASSISTING WITH TURNS, FEEDING SELF AFTER DIET WAS RECEIVED FROM SPEECH THERAPY. PHYSICAL THERAPY EVALUATED THIS AFTERNOON WHILE DAUGHTER WAS PRESENT, PATIENT TOLERATED WELL. TITRATED 02 DOWN TO 2L NC. HEART RATE CONTROLLED 100-110 WITH STABLE BP. METOPROLOL ADDED WITH FIRST DOSE TO BE GIVEN TONIGHT. URINE OUTPUT ADEQUATE AND RESPONDED WELL TO LASIX. LOW GRADE TEMP 99 THROUGH DAY. WILL CONTINUE TO MONITOR AND REPORT TO ONCOMING RN.
--- NOTE | 2022-01-02 20:00 | NUR ---
ASSUMED CARE RECEIVED REPORT FROM HEIDY SNOW AT 1900. PT LAYING IN BED WITH EYES CLOSED. RESPIRATIONS EVEN AND UNLABORED. AWAKENS EASILY TO VERBAL STIMULI, BELIEVED SHE WENT HOME FOR A MOMENT AND THEN REALIZED SHE WAS IN THE HOSPITAL. ABLE TO STATE CURRENT YEAR. WEARING 5L O2 NC, LUNGS COARSE WITH CRACKLES THROUGHOUT, SPO2 >90%. CHRONIC MODERATE BLE EDEMA. AFIB WITH RATE IN 100-120, DOES NOT SUSTAIN ABOVE 120. BP STABLE. TEMP VALDES PATENT, DRAINING CLEAR YELLOW URINE TO GRAVITY. PT FEBRILE, TMAX 100.2. BEDDING AND GOWN WERE WET WITH WHAT APPEARED TO BE WATER. CHANGED GOWN AND BEDDING. SHE IS ABLE TO ASSIST WITH REPOSITIONING AND EXPRESSES NEEDS WELL. ORDERS REVIEWED, WILL TREAT PRESCRIBED.
[2022-01-03 02:31] LABS: Vancomycin, Trough 20.8 ug/mL (5.0-10.0)
[2022-01-03 04:47] LABS: BASOPHILS PERCENT AUTO 0 % (0-2); EOSINOPHILS ABSOLUTE AUTO 0.02 K/mm3 (0.00-0.68); EOSINOPHILS PERCENT AUTO 1 % (0-6); Hematocrit 21.8 % (33.0-51.0); Hemoglobin 7.3 g/dL (11.5-16.0); IMMATURE GRAN ABSOLUTE AUTO 0.03 K/mm3 (0.00-0.10); IMMATURE GRAN PERCENT AUTO 2 % (0-1); LYMPHOCYTES ABSOLUTE AUTO 0.04 K/mm3 (0.84-5.20); LYMPHOCYTES PERCENT AUTO 2 % (21-46); MONOCYTES ABSOLUTE AUTO 0.06 K/mm3 (0.16-1.47); MONOCYTES PERCENT AUTO 4 % (4-13); Mean Corpuscular HGB 29.3 pg (26.0-34.0); Mean Corpuscular HGB Conc 33.5 g/dL (31.5-36.5); Mean Corpuscular Volume 88 fL (80-100); NEUTROPHILS ABSOLUTE AUTO 1.57 K/mm3 (1.96-9.15); NEUTROPHILS PERCENT AUTO 91 % (41-73); RDW Coefficient Variation 16.3 % (11.7-14.2); RDW Standard Deviation 52.9 fL (35.1-46.3); Red Blood Cell Count 2.49 M/mm3 (3.80-5.20); White Blood Cell Count 1.72 K/mm3 (4.00-11.30)
[2022-01-03 04:53] LABS: Mean Platelet Volume 10.6 fL (9.1-12.4)
[2022-01-03 04:57] LABS: Platelet Count 28 K/mm3 (150-400)
[2022-01-03 05:10] LABS: Albumin, Blood 1.5 g/dL (3.4-5.0); Anion Gap 5 mmol/L (6-16); Blood Urea Nitrogen 17 mg/dL (8-24); Bun/Creatinine Ratio 29.5 (12.0-20.0); CO2, Blood 34 mmol/L (21-32); Calcium, Blood 7.9 mg/dL (8.5-10.1); Chloride, Blood 94 mmol/L (98-108); Creatinine, Blood 0.58 mg/dL (0.40-1.00); Glomerular Filtration Rate >60 (60-); Glucose, Blood 122 mg/dL (70-99); Magnesium, Blood 1.8 mg/dL (1.6-2.4); Phosphorus, Blood 2.6 mg/dL (2.5-4.9); Potassium, Blood 3.2 mmol/L (3.5-5.5); Sodium, Blood 133 mmol/L (136-145)
--- NOTE | 2022-01-03 06:18 | NUR ---
PT SLEPT THROUGHOUT MOST OF THE NIGHT. WAS AROUSABLE BY VOICE, REPEATED THAT SHE WANTS TO GO HOME. ORIENTED TO SELF, PLACE, AND SITUATION. 5L O2 NC REMAINED ON, LUNGS CONTINUE TO SOUND COARSE WITH CRACKLES THROUGHOUT, DIMINISHED IN RIGHT BASE. SPO2 90% OR GREATER, BUT DIFFICULTY OBTAINING SPO2 D/T POOR PERFUSION. HR REMAINS AFIB, RATE SEEMS BETTER CONTROLLED WITH PO METOPROLOL, RATE IN 80-110'S. BP STABLE. VALDES PATENT, DRAINING 950ML URINE OUT THIS SHIFT. CURRENTLY RECEIVING 40MEQ OF POTASSIUM IV FOR REPLACEMENT. SHE HELPS WITH REPOSITIONING OR WILL REPOSITION SELF ON HER OWN. WILL REPORT TO ONCOMING SHIFT WHEN AVAILABLE.
--- NOTE | 2022-01-03 11:39 | NUR ---
PT IS DROWSY AFTER WORKING WITH PT AND ST THIS AM. SHE WAS ABLE TO STAND AND PIVOT TO BSC WITH ONE PERSON ASSIST, GAIT BELT AND WALKER. PT IS NOT FAMILIAR WITH WALKER AND STRUGGLES WITH PLACEMENT. OTHERWISE DID WELL WITH TRANSFER. PT IS VERY [place]. DAUGHTER IN TO SEE HER AND TOOK HEARING AIDS OUT TO CHARGE THEM. PT DOWNGRADED TO PCU STATUS. REPORT GIVEN TO TYRELL MOODY AND PT TAKEN OUT TO PCU 12 VIA BED. NO SIGN OF DISTRESS.
--- NOTE | 2022-01-03 12:32 | NUR ---
TRANSFER UPDATE REPORT RECIEVED FROM AUTOMOTIVE SERVICE MANAGER AT 1110. PT ARRIVED TO UNIT AT 1120 VIA HOSPITAL BED AND ON 5L NC. PT SLID FROM ICU BED TO PCU BED VIA SLIDE SHEET AND 3 RN. PT HAS POTASSIUM CHLORIDE AND NS CONNECTED TO CENTRAL LINE NOT, MEDS CONNECTED TO PUMPS AND RUNNING PER EMAR. CHART ON PT BED DURING DISCHARGE. PT HAS VALDES PRESENT WITH YELLOW URINE PRESENT IN VALDES BAG. DAUGHTER AT BEDSIDE.
--- NOTE | 2022-01-03 18:19 | NUR ---
PT HAD BRIEF PERIODS OF HR CLIMBING TO 150'S, WHEN ENTERING ROOM TO ASSESS, PT WAS TRYING TO PULL OFF GOWN, CORDS, AND REACHING FOR IJ LINES. THIS RN INSTRUCTED PT NOT PULL AT IV LINES AND INFORMED PT THAT SHE NEEDS THE LINES TO RECIEVE HER MEDS. PT CONTINUED TO PULL OFF GOWN EACH TIME THIS RN ATTEMPTED TO PUT GOWN BACK ON. PT ASKED TO BE ROLLED TO LEFT SIDE, PT ROLLED, PT BEGAN TO SLEEP. THIS RN INFORMED CHARGE NURSE THAT PT SHOULD BE IN A ROOM WITH A CAMERA. PLANS TO MOVE PT FROM PCU 12 TO PCU 8. OTHER VSS SINCE ARRIVAL TO UNIT.
[2022-01-03 23:44] LABS: Vancomycin, Trough 20.8 ug/mL (5.0-10.0)
[2022-01-04 04:02] LABS: BASOPHILS PERCENT AUTO 0 % (0-2); EOSINOPHILS ABSOLUTE AUTO 0.03 K/mm3 (0.00-0.68); EOSINOPHILS PERCENT AUTO 2 % (0-6); Hematocrit 21.2 % (33.0-51.0); Hemoglobin 6.8 g/dL (11.5-16.0); Mean Corpuscular HGB 28.3 pg (26.0-34.0); Mean Corpuscular HGB Conc 32.1 g/dL (31.5-36.5); Mean Corpuscular Volume 88 fL (80-100); Mean Platelet Volume 11.1 fL (9.1-12.4); RDW Standard Deviation 51.9 fL (35.1-46.3); White Blood Cell Count 1.31 K/mm3 (4.00-11.30)
[2022-01-04 04:09] LABS: IMMATURE GRAN ABSOLUTE AUTO 0.04 K/mm3 (0.00-0.10); IMMATURE GRAN PERCENT AUTO 3 % (0-1); LYMPHOCYTES ABSOLUTE AUTO 0.03 K/mm3 (0.84-5.20); LYMPHOCYTES PERCENT AUTO 2 % (21-46); MONOCYTES ABSOLUTE AUTO 0.06 K/mm3 (0.16-1.47); MONOCYTES PERCENT AUTO 5 % (4-13); NEUTROPHILS ABSOLUTE AUTO 1.15 K/mm3 (1.96-9.15); NEUTROPHILS PERCENT AUTO 88 % (41-73); Platelet Count 26 K/mm3 (150-400)
[2022-01-04 04:21] LABS: Alanine Aminotransfer (ALT/SGP 11 U/L (12-78); Albumin, Blood 1.5 g/dL (3.4-5.0); Albumin/Globulin Ratio 0.6 (0.8-1.8); Alk Phos 131 U/L (50-136); Anion Gap 4 mmol/L (6-16); Aspartate Aminotrans (AST/SGOT 30 U/L (12-37); Bilirubin, Total 1.4 mg/dL (0.1-1.0); Blood Urea Nitrogen 19 mg/dL (8-24); CO2, Blood 35 mmol/L (21-32); Calcium, Blood 7.8 mg/dL (8.5-10.1); Chloride, Blood 97 mmol/L (98-108); Creatinine, Blood 0.58 mg/dL (0.40-1.00); Globulin, Blood 2.5 g/dL (2.2-4.0); Glomerular Filtration Rate >60 (60-); Glucose, Blood 125 mg/dL (70-99); Magnesium, Blood 1.7 mg/dL (1.6-2.4); Potassium, Blood 3.3 mmol/L (3.5-5.5); Sodium, Blood 136 mmol/L (136-145)
[2022-01-04 14:36] LABS: Hematocrit 24.7 % (33.0-51.0); Mean Corpuscular HGB 28.3 pg (26.0-34.0); Mean Corpuscular HGB Conc 32.4 g/dL (31.5-36.5); Mean Corpuscular Volume 87 fL (80-100); Mean Platelet Volume 10.8 fL (9.1-12.4); RDW Coefficient Variation 16.2 % (11.7-14.2); RDW Standard Deviation 52.5 fL (35.1-46.3); Red Blood Cell Count 2.83 M/mm3 (3.80-5.20)
[2022-01-04 14:57] LABS: Platelet Count 29 K/mm3 (150-400)
--- NOTE | 2022-01-04 19:10 | NUR ---
Shift summary: Pt remains confused, agitated most of shift- Haldol x1. VSS. No s/s of pain. Afebrile. FC maintained, AUO. No BM. Pt refused any oral nutrition offers. Received 1 unit PRBC, 2nd currently transfusing. H/H trending up. K replaced. PT and speech deferred d/t confusion, agitation, and inability to follow commands. Frequent rounds to ensure pt safety. Pt repositioned q2hrs and pressure points offloaded to prevent pressure ulcers. Pt in no apparent distress at this time. Will continue to monitor until transfer of care to oncoming RN.
[2022-01-05 05:41] LABS: BASOPHILS ABSOLUTE AUTO 0.01 K/mm3 (0.00-0.23); BASOPHILS PERCENT AUTO 0 % (0-2); Hematocrit 27.9 % (33.0-51.0); Hemoglobin 9.3 g/dL (11.5-16.0); LYMPHOCYTES ABSOLUTE AUTO 0.04 K/mm3 (0.84-5.20); LYMPHOCYTES PERCENT AUTO 1 % (21-46); MONOCYTES PERCENT AUTO 2 % (4-13); Mean Corpuscular HGB 28.5 pg (26.0-34.0); Mean Corpuscular HGB Conc 33.3 g/dL (31.5-36.5); Mean Corpuscular Volume 86 fL (80-100); Mean Platelet Volume 11.5 fL (9.1-12.4); RDW Coefficient Variation 16.1 % (11.7-14.2); RDW Standard Deviation 51.1 fL (35.1-46.3); Red Blood Cell Count 3.26 M/mm3 (3.80-5.20)
[2022-01-05 05:50] LABS: EOSINOPHILS ABSOLUTE AUTO 0.02 K/mm3 (0.00-0.68); EOSINOPHILS PERCENT AUTO 0 % (0-6); IMMATURE GRAN ABSOLUTE AUTO 0.11 K/mm3 (0.00-0.10); IMMATURE GRAN PERCENT AUTO 2 % (0-1); NEUTROPHILS ABSOLUTE AUTO 4.72 K/mm3 (1.96-9.15); NEUTROPHILS PERCENT AUTO 94 % (41-73); Platelet Count 31 K/mm3 (150-400)
[2022-01-05 06:02] LABS: Alanine Aminotransfer (ALT/SGP 13 U/L (12-78); Albumin, Blood 1.6 g/dL (3.4-5.0); Albumin/Globulin Ratio 0.6 (0.8-1.8); Alk Phos 113 U/L (50-136); Anion Gap 5 mmol/L (6-16); Aspartate Aminotrans (AST/SGOT 30 U/L (12-37); Bilirubin, Total 1.7 mg/dL (0.1-1.0); Blood Urea Nitrogen 23 mg/dL (8-24); CO2, Blood 35 mmol/L (21-32); Calcium, Blood 7.7 mg/dL (8.5-10.1); Chloride, Blood 100 mmol/L (98-108); Creatinine, Blood 0.68 mg/dL (0.40-1.00); Globulin, Blood 2.5 g/dL (2.2-4.0); Glomerular Filtration Rate >60 (60-); Glucose, Blood 119 mg/dL (70-99); Magnesium, Blood 1.6 mg/dL (1.6-2.4); Phosphorus, Blood 2.3 mg/dL (2.5-4.9); Potassium, Blood 3.3 mmol/L (3.5-5.5); Sodium, Blood 140 mmol/L (136-145); Total Protein, Blood 4.1 g/dL (6.4-8.2); Vancomycin, Trough 16.3 ug/mL (5.0-10.0)
--- NOTE | 2022-01-05 10:30 | NUR ---
PT REPOSITIONED AT THIS TIME. EGG CRATE MATTRESS PLACED ON THE BED PER FAMILY REQUEST. HOSPITALIST IN THE ROOM TO ASSESS PT.
--- NOTE | 2022-01-05 18:33 | NUR ---
SUMMARY PT HAS REMAINED UNREPSONSIVE THROUGH THE DAY. SHE WAS ABLE TO ANSWER TO HER NAME X3, FAMILY HAS BEEN AT THE BEDSIDE. PT IS CURRENTLY ON 7 L O2 VIA NC, PPN WAS STARTED TODAY, IV ABX PER EMAR, REPOSITIONING & ORAL CARE PRN Q2 HRS, VSS. FAMILY STATES THAT THE POA "KRISTIN" MAY BE "IN DENIAL ABOUT THEIR MOTHERS CONDITION AND THAY ARE WORRIED ABOUT HER DECISIONS". VALDES REMAINS PATENT, CLEAR YELLOW URINE NOTED, NO OTHER ACUTE CHANGES NOTED. WCTM & REPORT TO NOC RN
[2022-01-06 04:36] LABS: Hematocrit 28.7 % (33.0-51.0); Hemoglobin 9.5 g/dL (11.5-16.0); Mean Corpuscular HGB 28.8 pg (26.0-34.0); Mean Corpuscular HGB Conc 33.1 g/dL (31.5-36.5); Mean Corpuscular Volume 87 fL (80-100); Mean Platelet Volume 11.4 fL (9.1-12.4); RDW Coefficient Variation 16.1 % (11.7-14.2); RDW Standard Deviation 51.7 fL (35.1-46.3); White Blood Cell Count 4.81 K/mm3 (4.00-11.30)
[2022-01-06 04:46] LABS: Platelet Count 29 K/mm3 (150-400)
[2022-01-06 04:57] LABS: Alanine Aminotransfer (ALT/SGP 12 U/L (12-78); Albumin, Blood 1.7 g/dL (3.4-5.0); Albumin/Globulin Ratio 0.7 (0.8-1.8); Alk Phos 108 U/L (50-136); Anion Gap 5 mmol/L (6-16); Aspartate Aminotrans (AST/SGOT 28 U/L (12-37); Bilirubin, Total 1.3 mg/dL (0.1-1.0); Blood Urea Nitrogen 25 mg/dL (8-24); Bun/Creatinine Ratio 43.4 (12.0-20.0); CO2, Blood 38 mmol/L (21-32); Calcium, Blood 8.2 mg/dL (8.5-10.1); Chloride, Blood 97 mmol/L (98-108); Creatinine, Blood 0.58 mg/dL (0.40-1.00); Globulin, Blood 2.6 g/dL (2.2-4.0); Glomerular Filtration Rate >60 (60-); Glucose, Blood 174 mg/dL (70-99); Magnesium, Blood 1.7 mg/dL (1.6-2.4); Sodium, Blood 140 mmol/L (136-145); Total Protein, Blood 4.3 g/dL (6.4-8.2); Triglycerides 218 mg/dL (30-160)
--- NOTE | 2022-01-06 05:09 | NUR ---
INFORMED DR. GUEVARA THAT PATIENT LABS INDICATE A DROP IN PLATELETS FROM 31 TO 29. NO ORDERS RECEIVED.
[2022-01-06 05:42] LABS: BAND PERCENT MAN 43 % (0-8); BASOPHILS PERCENT MAN 0 % (0-2); EOSINOPHILS ABSOLUTE MAN 0.04 K/mm3 (0.00-0.68); EOSINOPHILS PERCENT MAN 1 % (0-6); LYMPHOCYTES ABSOLUTE MAN 0.04 K/mm3 (0.84-5.20); LYMPHOCYTES PERCENT MAN 1 % (21-46); MONOCYTES ABSOLUTE MAN 0.09 K/mm3 (0.16-1.47); MONOCYTES PERCENT MAN 2 % (4-13); NEUTROPHILS ABSOLUTE MAN 4.61 K/mm3 (1.96-9.15); SEG NEUTROPHILS PERCENT MAN 53 % (41-73); TOTAL CELLS COUNTED 100
--- NOTE | 2022-01-06 12:28 | NUR ---
Pt's daughter Patti at bedside. She is POA, and she reports she checked pt's Advance Directive at home, and pt's code status should be DNR. Pt is currently non-responsive. Unsure the etiology, but head CT done this am. Dr. Estrada to see pt today per pt's daughter.
--- NOTE | 2022-01-06 16:24 | NUR ---
Pt's family is accepting of the poor prognosis pt was given today by Dr. John. Pt has not awoken since this morning, and her breathing is slightly labored this afternoon. She grimaces occasionally. Pt's daughter has been resistive of talking about comfort care and/or hospice until this afternoon. Other family members are at bedside. Daughter has requested a t/c from this RN. I called her, she states she is ready for comfort, and home with hospice when they are available. No further issues identified at this time.
--- NOTE | 2022-01-06 17:03 | NUR ---
Received referral from Palliative Care Nurse (Letty Quinonez) on 01/06/2022. Patient is to discharge with orders for hospice and family elected [facility]. Gathered supporting documentation for referral (face sheet, labs, imaging, progress notes, palliative care note, and H&P) and sent to [facility] shorts sifter (Adrienne Urias) for review of hospice appropriateness and ability to accept patient onto service post discharge. Will await further information from hospice shorts sifter regarding the above. Corina Myers Referral Liaison
--- NOTE | 2022-01-06 17:51 | NUR ---
UPDATE FAMILY HAD LONG DISCUSSION WITH DR. KRISHNAN ABOUT PROGNOSIS. FAMIY WAITED TO MAKE DECISION, BUT HAVE TRANSITIONED PT TO COMFORT CARE. MULTIPLE FAMILY MEMBERS AT BEDSIDE. PT RESTING COMFORTABLY AT THIS TIME. BREATHING EVEN AND UNLABORED. WILL CONTINUE TO MONITOR AND PROVIDE COMFORT MEASURES
--- NOTE | 2022-01-06 19:15 | NUR ---
Call back - Many family members present and appear to be accepting of pt's present placement of comfort care. Pt's oldest daughter reminisces about pt with family and others add comments. Some laughter and comments of acceptance were given by family. Verbal prayer offered on behalf of pt and those present. The family verbalized gratitude for the interventions. Call back ended.
--- NOTE | 2022-01-07 04:18 | NUR ---
SHIFT SUMMARY: PATIENT TRANSFERED FROM PCU ON COMFORT CARE WITH FAMILY AT BEDSIDE. PATIENT IS UN-RESPONSIVE. SHE WILL OPEN EYES OCCASIONALLY AND GROAN. SOME LABORED BREATHING NOTED. AIR HUNGER TREATED PER EMAR. FAMILY HOPES TO TAKE HER HOME TODAY.
--- NOTE | 2022-01-07 10:11 | NUR ---
Recieved call from [facility] with report that they were setting up DME, O2, hospital bed and OB table at pt's home this am and would be delivering O2 E tank to hospital around noon. They requested that transport be set up around 1pm and they would see pt at 2pm today. All of above relayed to Cecilia/NELLY by phone. [facility] has been in direct communication with pt's Padmini Dhillon regarding all of above also.
--- NOTE | 2022-01-07 10:48 | NUR ---
Recieved notification that referral was already made to [facility] on 01/03/2022. Notified [facility] Clinical Coordinator (Pretty Zuluaga) of the above. No further interventions required. Corina Myers Referral Liaison
[2022-01-07] MEDS ORDERED: ACETAMINOPHEN PR (12:02)
[2022-01-07] MEDS ORDERED: ATROPINE S0.1 MG/1 M SL (12:03)
[2022-01-07] MEDS ORDERED: Ativan1 MG PO (12:05)
[2022-01-07] MEDS ORDERED: HALOPERIDOL2 MG/1 M1 PO (12:05)
[2022-01-07] MEDS ORDERED: ONDA4ODT MM (12:07)
[2022-01-07] MEDS ORDERED: MORP20L SL (12:07)
[2022-01-07] MEDS ORDERED: PHENERGAN25 MG PR (12:08)
[2022-01-07] MEDS ORDERED: TRANSDERM-SCOP1 EAC9 TD (12:10)
--- NOTE | 2022-01-07 13:10 | NUR ---
DISCHARGE SUMMARY PATIENT IS A COMFORT CARE PATIENT. PATIENT HAS BEEN UNRESPONSIVE ALL SHIFT. FAMILY HAS BEEN WITH PATIENT THE ENTIRE SHIFT. PATIENT HAS BEEN MEDICATED PER EMAR FOR AIR HUNGER. PATIENT WAS TRANSPORTED BY EMS TO HOME FOR HOME HOSPICE. FAMILY WAS EDUCATED FOR HOSPICE INSTRUCTIONS AND DISCHARGE INFORMATION. PATIENTS FAMILY WAS GIVEN HARD SCRIPTS FOR MEDICATIONS AND ADDITIONAL MEDICATIONS WERE FAXED TO PATIENTS FAMILYS CHOICE OF PHARMACY. EMS PICKED UP PATIENT WITH PATIENTS FAMILY.
== END 2022-01-07 14:02 | disposition hospice, home (50) | DRG 871 ==
LOC: ER 21:33 → ICUW 12-31 03:34 → ICUE 12-31 03:34 → PCU 01-03 11:25 → MEDS 01-07 00:09
PROVIDERS: Emergency Medicine; Family Medicine; Internal Medicine; Pharmacist; Physician Assistant; ADMIT Internal Medicine
PROC: 3E03329 Introduction of Other Anti-infective into Peripheral Vein, Percutaneous Approach (ICD-10-PCS; principal; 2021-12-31)
PROC: 30233N1 Transfusion of Nonautologous Red Blood Cells into Peripheral Vein, Percutaneous Approach (ICD-10-PCS; 2021-12-31)
DX: A41.9 Sepsis, unspecified organism (principal); J96.01 Acute respiratory failure with hypoxia; J18.9 Pneumonia, unspecified organism; D61.810 Antineoplastic chemotherapy induced pancytopenia; G92.8 Other toxic encephalopathy; N39.0 Urinary tract infection, site not specified; D58.9 Hereditary hemolytic anemia, unspecified; C88.4 Extranodal marginal zone B-cell lymphoma of mucosa-associated lymphoid tissue [MALT-lymphoma]; I48.20 Chronic atrial fibrillation, unspecified; I11.0 Hypertensive heart disease with heart failure; I50.9 Heart failure, unspecified; Z51.5 Encounter for palliative care; R65.20 Severe sepsis without septic shock; E83.42 Hypomagnesemia; E87.6 Hypokalemia; Z78.1 Physical restraint status; Z28.82 Immunization not carried out because of caregiver refusal; K21.9 Gastro-esophageal reflux disease without esophagitis; Z20.822 Contact with and (suspected) exposure to COVID-19; I95.9 Hypotension, unspecified; E03.9 Hypothyroidism, unspecified; Z79.899 Other long term (current) drug therapy; Z79.890 Hormone replacement therapy; Z79.82 Long term (current) use of aspirin; Z85.828 Personal history of other malignant neoplasm of skin; Z98.890 Other specified postprocedural states; Z92.21 Personal history of antineoplastic chemotherapy; Z87.891 Personal history of nicotine dependence
CPT/HCPCS: 0241U; 36415; 36430; 36556; 51702; 70450; 71045; 71260; 74177; 80047; 80053; 80069; 80162; 80202; 81001; 82947; 83605; 83735; 83880; 84100; 84145; 84478; 84484; 85014; 85018; 85025; 85027; 85610; 86140; 86850; 86900; 86901; 86923; 87040; 87086; 92526; 92610; 93005; 93010; 93306; 94760; 94762; 96374; 97110; 97162; 97530; 99285-25; A9270; C1751; J0692; J1160; J1170; J1630; J1650; J1940; J2405; J2543; J3010; J3370; J3411; J3475; J3480; J7030; J7040; J7050; J7060; P9016; P9046; Q5110; Q9967